=== PATIENT | male | born 1945 | race Caucasian/White ===

== ENCOUNTER → 2016-12-27 | Outpatient (CLI) | payer OTHER, MEDICARE ==
[~2016-12-27] MED LIST: ALLDSR/24 PO; ASCO500T16 PO; ASPEC81 PO; AVD5 PO; COEN1CAP PO; CYM60 PO; FLM4 PO; LANS30CA12 PO; LEVO88TA3 PO; LISI-725 PO; LOVA20TA4 PO; MBC75 PO; MELO7.5T5 PO; MODA1TAB PO; MULT-506 PO; OMEG10007 PO; QUIN1CAP5 PO; RXC5 PO; VGR50 PO; VITAMIN E PO
--- NOTE | 2016-12-28 09:51 | CODING QUERY NO DIAGNOSIS ---
TREATMENT RENDERED WITHOUT A DIAGNOSIS To promote full compliance with coding requirements relating to patient care, physician participation is requested in all cases of data warehouse developer uncertainty. Please assist us with providing a diagnosis/symptom for the test(s) below: A diagnosis/symptom was not documented on your Order. A valid diagnosis/symptom is required to bill all insurances. Please remember that we are unable to code a diagnosis of rule out, probable, possible, questionable, or suspected. Tests that require a diagnosis: * AERO/BERNARDA CULTURE & GRAM STAIN DIAGNOSIS: Provider Signature: Date: Thank you Melisa [facility] [employer] Once completed, please kindly fax back to [phone] For questions please call [phone]
== END | disposition home or self-care (01) ==
LOC: C.LABSPEC 17:07
PROVIDERS: ATTEND Orthopaedic Surgery
DX: M71.122 Other infective bursitis, left elbow (principal)

== ENCOUNTER 2017-03-05 08:45 | Inpatient (IN) | payer OTHER, MEDICARE ==
[2017-02-21 12:43] VITALS: BMI 28.0
--- NOTE | 2017-02-21 13:21 | PAT Medication Instructions ---
Service Date Feb 21, 2017. Current Home Medication List Ascorbic Acid (Ascorbic Acid), 500 MG PO QAM Aspirin Enteric Coated (Ecotrin Or Generic *), 81 MG PO QAM Duloxetine Hcl (Cymbalta *), 60 MG PO HS Dutasteride (Avodart *), 0.5 MG PO QAM Fexofenadine/Pseudoephedrine (Tati-D 24HR 180/240MG *), 1 TAB PO QAM Fish Oil ([place]-3), 1,200 MG PO QAM Lansoprazole (Prevacid), 30 MG PO QAM Levothyroxine Sodium (Levothyroxine Sodium), 1 TAB PO QAM Lisinopril (Zestril), 20 MG PO QAM Meloxicam (Mobic), 15 MG PO QAM Modafinil (Provigil), 200 MG PO DAILY Multivitamin (Multivitamin), 1 TAB PO QAM Quinine Sulfate (Quinine Sulfate), 324 MG PO DAILY PRN Tamsulosin Hcl (Flomax *), 0.4 MG PO HS Medication Instructions For Your Scheduled Surgery - Check with surgeon for instructions: Aspirin Enteric Coated (Ecotrin Or Generic *), 81 MG PO QAM Meloxicam (Mobic), 15 MG PO QAM - Hold the following medications 2 weeks prior to surgery: Fish Oil ([place]-3), 1,200 MG PO QAM - Hold the following medications the morning of surgery: Multivitamin (Multivitamin), 1 TAB PO QAM Lisinopril (Zestril), 20 MG PO QAM Fexofenadine/Pseudoephedrine (Tati-D 24HR 180/240MG *), 1 TAB PO QAM Dutasteride (Avodart *), 0.5 MG PO QAM Ascorbic Acid (Ascorbic Acid), 500 MG PO QAM Quinine Sulfate (Quinine Sulfate), 324 MG PO DAILY PRN leg cramps Modafinil (Provigil), 200 MG PO DAILY PRN - Take the following medications the morning of surgery with a sip of water: Levothyroxine Sodium (Levothyroxine Sodium), 1 TAB PO QAM Lansoprazole (Prevacid), 30 MG PO QAM - Take the following medications as scheduled the night before surgery: Tamsulosin Hcl (Flomax *), 0.4 MG PO HS Duloxetine Hcl (Cymbalta *), 60 MG PO HS Quinine Sulfate (Quinine Sulfate), 324 MG PO DAILY PRN leg cramps If you have any questions please call us at [phone] (Myra Funes PA-C) or [phone] or [phone]
--- NOTE | 2017-02-21 14:16 | DIAGNOSTIC IMAGING REPORT ---
CHEST PREADMISSION(PA/LAT) CLINICAL HISTORY: Preoperative chest COMPARISON STUDY: July 2011 FINDINGS: The cardiac and mediastinal contours are normal. There is no evidence of focal pulmonary consolidation. There is no evidence of failure. No pleural effusions are visualized.[ There is minimal linear atelectasis/scarring at the lung bases. IMPRESSION: No active disease in the chest. Electronically signed by: Kings Henderson M.D. 02/21/2017 2:14 PM Dictated Date/Time: 02/21/2017 2:13 PM
--- NOTE | 2017-02-21 14:21 | DIAGNOSTIC IMAGING REPORT ---
CERVICAL SPINE 2 OR 3 VIEWS CLINICAL HISTORY: PREOP, RHEUMATOID ARTHRITIS COMPARISON STUDY: None. FINDINGS: Lateral, flexion, extension views of the cervical spine. No fractures. Mild disc space narrowing at C4-C5 and C6-C7. Severe disc space narrowing at C5-C6. Large endplate osteophytes anteriorly from C4 through C6. Prevertebral soft tissues are intact. C1-C2 interval is maintained. There is 2 mm of anterolisthesis of C3 on C4 which remains unchanged through both flexion and extension. There is also 2 mm of retrolisthesis of C5 and C6 which is also not significant changed on flexion or extension. 2 mm of anterolisthesis of C7 on T1 remains unchanged throughout flexion and extension. Moderate facet degenerative changes within the cervical spine. IMPRESSION: Degenerative changes and multilevel spondylolisthesis as described above. However, the alignment remains intact throughout flexion and extension. Electronically signed by: Oscar Fall M.D. 02/21/2017 2:19 PM Dictated Date/Time: 02/21/2017 2:15 PM
[2017-02-21 14:37] LABS: BASO % 0.9 %; BASO ABS # 0.04 K/uL (0-0.2); COMPLETE YES; EOS % 6.1 %; HEMATOCRIT 43.6 % (42-52); IG% 0.4 %; LYMPH % 30.9 %; LYMPH ABS # 1.38 K/uL (1.2-3.4); MEAN CORPUSCULAR HEMOGLOBIN 30.9 pg (25-34); MEAN CORPUSCULAR HGB CONC 33.3 g/dl (32-36); MEAN PLATELET VOLUME 10.7 fL (7.4-10.4); MONO % 10.8 %; NEUT % 50.9 %; PLATELET COUNT 218 K/uL (130-400); RED BLOOD COUNT 4.69 M/uL (4.7-6.1); WHITE BLOOD COUNT 4.46 K/uL (4.8-10.8)
[2017-02-21 14:45] LABS: URINE APPEARANCE CLEAR (CLEAR); URINE BILIRUBIN NEG (NEG); URINE COLOR YELLOW; URINE NITRITE NEG (NEG); URINE SPECIFIC GRAVITY 1.012 (1.000-1.030); UROBILINOGEN NEG (NEG)
[2017-02-21 14:54] LABS: MANUAL MICROSCOPIC REQUIRED? NO; REVIEW REQ? NO
[2017-02-21 15:42] LABS: CALCIUM 8.7 mg/dl (8.5-10.1); POTASSIUM 4.7 mmol/L (3.5-5.1)
[2017-03-05] VITALS (8 sets, daily range): BP systolic 91–146; BP diastolic 41–93; PULSE 58–81; TEMP 36.3–36.5; O2SAT 95–99; Ht 185.4 cm; Wt 98.9 kg
[~2017-03-05] VITALS: Ht 185.4 cm; Wt 98.9 kg
[~2017-03-05 08:45] MED LIST changes: +CEFAZOLIN 2000 MG/60 ML D5W IV SCH; -COEN1CAP PO; +LACTATED RINGER'S 1000ML 1,000 ML IV SCH; -LOVA20TA4 PO; -MBC75 PO; -RXC5 PO; -VGR50 PO; -VITAMIN E PO
[2017-03-05] MEDS ORDERED: FENTANYL CITRATE INJ 50 MCG/1 ML 2 ML VIAL ONE ×5 (10:13→15:03)
[2017-03-05] MEDS ORDERED: MIDAZOLAM HCL 1 MG/ML 2ML VIAL ONE (10:13)
--- NOTE | 2017-03-05 10:39 | History & Physical Bridge Note ---
H&P Re-Evaluation Bridge Note: I have examined the patient, reviewed the History & Physical and in the interval since the performance of the History & Physical I have noted the following changes of clinical significance: No changes noted
--- NOTE | 2017-03-05 10:42 | History and Physical ---
History & Physical Date March 05, 2017. Chief Complaint back and leg pain History of Present Illness The patient is a 71 year old male with complaints of Past Medical/Surgical History Medical Problems: (1) Esophageal Reflux (2) Hypertension Nos (3) Lumbago Surgical Problems: (1) History of lumbar fusion (2) Knee Joint Replacement Status Additional History Hepatic Disease: No Endocrine Disorder: No Kidney Disease: No Hypertension: No Heart Disease: No Bleeding Tendencies: No Infectious Diseases: No Allergies Coded Allergies: Hydrocodone (Verified Allergy, Unknown, CHEST TIGHTNESS AND HEAVINESS, 03/05) Home Medications Scheduled Ascorbic Acid (Ascorbic Acid), 500 MG PO QAM Aspirin Enteric Coated (Ecotrin Or Generic *), 81 MG PO QAM Duloxetine Hcl (Cymbalta *), 60 MG PO HS Dutasteride (Avodart *), 0.5 MG PO QAM Fexofenadine/Pseudoephedrine (Tati-D 24HR 180/240MG *), 1 TAB PO QAM Fish Oil ([place]-3), 1,200 MG PO QAM Lansoprazole (Prevacid), 30 MG PO QAM Levothyroxine Sodium (Levothyroxine Sodium), 1 TAB PO QAM Lisinopril (Zestril), 20 MG PO QAM Meloxicam (Mobic), 15 MG PO QAM Modafinil (Provigil), 200 MG PO DAILY Multivitamin (Multivitamin), 1 TAB PO QAM Quinine Sulfate (Quinine Sulfate), 324 MG PO DAILY PRN Tamsulosin Hcl (Flomax *), 0.4 MG PO HS Physical Examination Skin: warm/dry, no rash Eyes: normal inspection, EOMI, sclerae normal ENT: normal ENT inspection, pharynx normal Head: normocephalic, atraumatic Neck: supple, no adenopathy, trachea midline Respiratory/Chest: lungs clear, normal breath sounds, no respiratory distress Cardiovascular: regular rate, rhythm, no edema, no murmur Abdomen / GI: normal bowel sounds, non tender Back: normal inspection Extremities: normal inspection, normal range of motion Neurologic/Psych: no motor/sensory deficits, alert, normal reflexes, oriented x 3 Diagnosis lumbar stenosis with sacralilitis Plan of Treatment decompression fusion T12-L3 removal inst L3 S1 with iliac bolts
[2017-03-05] MEDS ORDERED: BUPIVACAINE/EPINEPHRINE 0.5% MPF 1:200,000 30 ML VIAL ONE (10:50)
[2017-03-05] MEDS ORDERED: BACITRACIN 50000 UNIT VIAL ONE (10:50)
[2017-03-05] MEDS ORDERED: SODIUM CHLORIDE 0.9% PF 50 ML VIAL ONE (10:50)
[2017-03-05] MEDS ORDERED: ALBUMIN HUMAN 5% 12.5 GM/250 ML VIAL IV ONE ×2 (11:08→14:11)
[2017-03-05] MEDS ORDERED: THROMBIN FOR SOLN 20000 UNIT KIT ONE (11:20)
[2017-03-05] MEDS ORDERED: HYDROmorphone INJ 2 MG/ML SYR/VIAL ONE ×3 (11:36→15:06)
[2017-03-05] MEDS ORDERED: EpHEDrine SULFATE INJ 50 MG/ML AMP IV PRN (12:15)
[2017-03-05] MEDS ORDERED: FENTANYL CITRATE INJ 50 MCG/1 ML 2 ML VIAL IV PRN (12:15)
[2017-03-05] MEDS ORDERED: ATROPINE SULFATE 0.1 MG/ML 5ML SYR IV PRN (12:15)
[2017-03-05] MEDS ORDERED: ONDANSETRON INJ 2 MG/ML 2 ML VIAL IV PRN ×2 (12:15→15:00)
[2017-03-05] MEDS ORDERED: FLOSEAL HEMOSTATIC MATRIX 10ML TOP ONE ×5 (14:02→14:22)
[2017-03-05 14:10] LABS: HEMATOCRIT 34.5 % (42-52)
[2017-03-05] MEDS ORDERED: LIDOCAINE HCL 2% 2 ML VIAL (20MG/ML) ONE (14:10)
[2017-03-05] MEDS ORDERED: PROPOFOL IV EMULSION 10 MG/ML 20 ML VIAL IV ONE (14:10)
[2017-03-05] MEDS ORDERED: PHENYLEPHRINE 100MCG/ML 5ML SYR ONE (14:10)
[2017-03-05] MEDS ORDERED: EpHEDrine SULFATE 50MG/5ML SYR ONE (14:10)
[2017-03-05] MEDS ORDERED: ROCURONIUM BROMIDE 10 MG/ML 5 ML VIAL ONE (14:10)
[2017-03-05] MEDS ORDERED: DEXAMETHASONE SOD INJ 4 MG/ML VIAL ONE (14:10)
[2017-03-05] MEDS ORDERED: CEFAZOLIN SOD 1 GM VIAL ONE (14:36)
[2017-03-05] MEDS ORDERED: SODIUM CHLORIDE 0.9% 1000ML 1,000 ML IV SCH (14:56)
[2017-03-05] MEDS ORDERED: BISACODYL 10 MG SUPP PR PRN (15:00)
[2017-03-05] MEDS ORDERED: DO NOT ADMINISTER PNEUMOCOCCAL VACCINE PRN ×2 (15:00)
[2017-03-05] MEDS ORDERED: PROMETHAZINE HCL INJ 12.5 MG in SODIUM CHLORIDE 0.9% 50ML 50 ML IV PRN (15:00)
[2017-03-05] MEDS ORDERED: DO NOT ADMINISTER FLU VACCINE PRN ×3 (15:00)
[2017-03-05] MEDS ORDERED: ALUMINUM/MAGNESIUM SUSP 30 ML UDC PO PRN (15:00)
[2017-03-05] MEDS ORDERED: LORAZEPAM 0.5 MG TAB PO PRN (15:00)
[2017-03-05] MEDS ORDERED: SOD PHOSPHATE/SOD BIPHOSPHATE ENEMA 132 ML BTL PR PRN (15:00)
[2017-03-05] MEDS ORDERED: FAMOTIDINE 20 MG TAB PO PRN (15:00)
[2017-03-05] MEDS ORDERED: METOCLOPRAMIDE HCL INJ 5 MG/ML 2 ML VIAL IV PRN (15:00)
[2017-03-05] MEDS ORDERED: MAGNESIUM HYDROXIDE SUSP 30 ML UDC PO PRN (15:00)
[2017-03-05] MEDS ORDERED: hydrOXYzine HCL 25 MG TAB PO PRN (15:00)
[2017-03-05] MEDS ORDERED: NALOXONE HCL 0.4 MG/1 ML VIAL/CARP IV PRN ×2 (15:00)
[2017-03-05] MEDS ORDERED: ACETAMINOPHEN IV 100 ML IV PRN (15:00)
[2017-03-05] MEDS ORDERED: LORAZEPAM INJ 0.5 MG in SYRINGE 0.75 ML IV PRN (15:00)
[2017-03-05] MEDS ORDERED: ACETAMINOPHEN 500 MG TAB PO PRN (15:00)
[2017-03-05] MEDS ORDERED: ONDANSETRON INJ 2 MG/ML 2 ML VIAL ONE ×2 (15:08)
[2017-03-05] MEDS ORDERED: GLYCOPYRROLATE INJ 0.2 MG/ML VIAL ONE (15:08)
[2017-03-05] MEDS ORDERED: NEOSTIGMINE METHYLSULFATE 1 MG/ML 10ML VIAL ONE (15:08)
[2017-03-05 15:09] LABS: HEMATOCRIT 30.8 % (42-52)
--- NOTE | 2017-03-05 15:10 | DIAGNOSTIC IMAGING REPORT ---
Lumbar spine LUMBAR SPINE 2 OR 3 VIEW CLINICAL HISTORY: T12-S1 COMPRESSION/FUSION/INTERBODY/ILIAC BOLTS TECHNIQUE: Image intensifier COMPARISON STUDY: None FINDINGS: Image intensifier was utilized for an intraoperative thoracolumbar laminectomy and fusion IMPRESSION: Image intensifier used for lumbar laminectomy and fusion Electronically signed by: Jeffry Garcia M.D. 03/05/2017 3:09 PM Dictated Date/Time: 03/05/2017 3:06 PM
--- NOTE | 2017-03-05 15:27 | OPERATIVE REPORT ---
DATE OF OPERATION: 03/05/2017 PREOPERATIVE DIAGNOSES: Spinal stenosis, bilateral sacroiliitis. POSTOPERATIVE DIAGNOSIS: Same. PROCEDURE PERFORMED: 1. Removal of posterior segmental instrumentation, L3-S1. 2. Exploration of fusion L3-S1. 3. Lumbar decompression, medial facetectomies, foraminotomies L1-L2, L2-L3. 4. Posterior spinal fusion T11-S1. 5. Bilateral SI joint fusions. 6. Placement of posterior segmental instrumentation, T12-S1 with bilateral iliac bolts. 7. Placement of locally harvested morselized autograft posterior gutters. 8. Placement of Infuse collagen sponge combined with Mastergraft in the SI joints and posterolateral gutters T11-S1. SURGEON: Dr. Ross Tafoya. DIVISION ENGINEER: Due to the complex nature of the procedure, the entire surgery was performed with the dam tender assistant of Aaliyah Vu PA-C. The clinical services assistant, under direct supervision, was involved in the actual performance of all aspects of the surgical procedure including hemostasis, tissue retraction and incision, instrument management, patient positioning, and wound closure. ANESTHESIA: General. DISPOSITION: The patient awakened and taken to PACU in stable condition. HISTORY OF PATIENT'S PROBLEMS: This is a 71-year-old male who presents with above-mentioned diagnosis. After failing an extensive course of nonoperative care, elected to undergo the above-mentioned procedure. Risks, benefits, pros, cons, and alternatives were outlined in detail preoperatively. PROCEDURE: The patient was met with preoperatively, the case discussed and all questions were addressed. At that point the patient was taken back to operative suite and after undergoing successful general intubation via department anesthesia was placed in prone position on Wally table atop Oni frame. All bony prominences were well padded and the eyes were inspected to ensure there was no external pressure placed upon them. At this point the thoracolumbar spine was prepped and draped in normal sterile fashion. Sharp dissection with the assistance of Bovie cautery down to and exposing the lamina and transverse processes of T11, T12, L1, L2 and instrumentation at L3, L4, L5 and S1 levels bilaterally. I then proceeded to remove the hardware at L3-S1 bilaterally exploring the fusion mass noting it to be intact. We then performed a complete midline decompression, bilateral medial facetectomies, foraminotomies L2, L3 and 1, 2 to a caudal to cephalad fashion addressing severe lateral recess foraminal disease. After this was complete, pedicle screws were then placed in T12, L1, L2, L3, L4, L5, S1 as well as bilateral iliac bolts. Appropriate size rods were then cut, contoured and locked into position bilaterally in the transverse processes of T11, T12, L1, L2, L3, sacral ala and the bilateral SI joints were burred to subcortical bleeding bone. Infuse collagen sponge combined with Mastergraft and locally harvested morselized autograft was placed. A 7 flat SAIGE drain was inserted. Incision was closed with 1-0 Vicryl in the fascia, 2-0 Vicryl subcutaneously, 4-0 Monocryl for final skin closure. Steri-Strips and sterile dressing placed. The patient was awakened and taken to PACU in stable condition. I attest to the content of the Intraoperative Record and any orders documented therein. Any exceptio ns are noted below.
[2017-03-05] MEDS: HYDROmorphone HCL 0.5MG/ML 50 ML CASSETTE IV PRN ×3 (15:50→23:01)
--- NOTE | 2017-03-05 16:02 | Anesthesiology Progress Note ---
Anesthesia Post Op Note Date & Time March 05, 2017 at 16:02 Vital Signs Pain Intensity: 0 Vital Signs Past 12 Hours Date Time Temp Pulse Resp B/P Pulse Ox O2 Delivery O2 Flow Rate FiO2 03/05/17 15:45 126/61 03/05/17 15:44 76 15 100 03/05/17 15:44 76 15 03/05/17 15:40 120/56 03/05/17 15:39 72 13 03/05/17 15:39 72 13 100 03/05/17 15:35 116/46 03/05/17 15:34 75 12 99 03/05/17 15:34 75 12 03/05/17 15:30 102/48 03/05/17 15:29 74 13 100 03/05/17 15:29 36.2 75 16 115/48 99 Mask 10 03/05/17 15:29 75 13 03/05/17 09:09 36.4 58 18 146/93 97 Notes Mental Status: alert / awake / arousable, participated in evaluation Pt Amnestic to Procedure: Yes Nausea / Vomiting: adequately controlled Pain: adequately controlled Airway Patency, RR, SpO2: stable & adequate BP & HR: stable & adequate Hydration State: stable & adequate Anesthetic Complications: no major complications apparent Pt doing well.
[2017-03-05] MEDS: SODIUM CHLORIDE 0.9% 1000ML 1,000 ML IV SCH ×2 (18:05→21:31)
[2017-03-05] MEDS: CEFAZOLIN IV 2,000 MG in DEXTROSE 5% 50ML 50 ML IV SCH (20:13)
[2017-03-05] MEDS: DULOXETINE HCL 60 MG CAP PO SCH (20:34)
[2017-03-05] MEDS: DOCUSATE SODIUM/SENNA 50/8.6MG TAB PO SCH (20:35)
[2017-03-05] MEDS: TAMSULOSIN HCL 0.4 MG CAP PO SCH (20:35)
[2017-03-05] MEDS: DEXAMETHASONE INJ 6 MG in SYRINGE 0 ML IV SCH (21:33)
[2017-03-06] VITALS (7 sets, daily range): BP systolic 99–137; BP diastolic 47–70; PULSE 59–86; TEMP 36.4–37.4; O2SAT 93–100
[2017-03-06] MEDS: SODIUM CHLORIDE 0.9% 1000ML 1,000 ML IV SCH (03:36)
[2017-03-06] MEDS: CEFAZOLIN IV 2,000 MG in DEXTROSE 5% 50ML 50 ML IV SCH (03:36)
[2017-03-06] MEDS: DEXAMETHASONE INJ 6 MG in SYRINGE 0 ML IV SCH ×2 (05:54→13:44)
[2017-03-06] MEDS: LEVOTHYROXINE 88 MCG TAB PO SCH (05:54)
[2017-03-06] MEDS ORDERED: DC PCA ONE (06:00)
[2017-03-06] MEDS ORDERED: OXYCODONE HCL IR 5 MG TAB (IMMEDIATE RELEASE) PO PRN (06:00)
[2017-03-06] MEDS ORDERED: HYDROmorphone INJ 1 MG/ML SYR IV PRN (06:00)
[2017-03-06 06:15] LABS: COMPLETE YES; EOS % 0.1 %; IG% 0.2 %; LYMPH % 5.4 %; LYMPH ABS # 0.57 K/uL (1.2-3.4); MEAN CELL VOLUME 92.9 fL (80-100); MEAN CORPUSCULAR HEMOGLOBIN 32.1 pg (25-34); MEAN CORPUSCULAR HGB CONC 34.6 g/dl (32-36); MEAN PLATELET VOLUME 9.9 fL (7.4-10.4); MONO % 4.2 %; NEUT % 90.1 %; PLATELET COUNT 161 K/uL (130-400); WHITE BLOOD COUNT 10.62 K/uL (4.8-10.8)
[2017-03-06] MEDS ORDERED: NURSING VERBAL MED ORDER ONE (06:15)
[2017-03-06 06:53] LABS: BUN/CREATININE RATIO 16.2 (10-20); CALCIUM 7.6 mg/dl (8.5-10.1); CREATININE 1.1 mg/dl (0.60-1.40); POTASSIUM 4.6 mmol/L (3.5-5.1)
--- NOTE | 2017-03-06 07:19 | Clinical Documentation Query ---
JORDEN Skinner : CLINICAL DOCUMENTATION QUERY Patient is a 71 year old male who on 03/05 underwent removal of L3-S1 posterior instrumentation, decompression, and T11-S1 posterior spinal fusion. Preoperative hemoglobin and hematocrit were 14.5 g/dl and 43.6%. POD #1, repeat values were 9.0 g/dl and 26.0%. EBL for the procedure was 1,700 ml's with subsequently documented losses to date totaling an additional 580 ml's. Patient is being monitored with I/O including drain outputs and serial hematology. As appropriate, consider documentation as suggested below. In your clinical opinion is this patient being managed for: ( ) Acute blood loss anemia (this is NOT a complication of care) ( ) Other explanation of clinical findings (Please Explain) ( ) Unable to determine (Please Define) ( ) Need to Discuss ( ) Not Agree The medical record reflects the following clinical findings, treatment, and risk factors. Clinical Indicators: As above Treatment: Serial hematology, I/O including drain outputs Risk Factors: Acute perioperative blood losses. Please clarify and document your clinical opinion in the progress notes and discharge summary. Terms such as "probable", "suspected", "likely", "questionable", "possible", or "still to be ruled out" are acceptable. IF IN AGREEMENT, YOU MUST DOCUMENT ABOVE DIAGNOSTIC STATEMENT IN DAILY PROGRESS NOTES AND DISCHARGE SUMMARY. This document is not part of the patient's record. Thank You, Joshua Walker, SARAH BETH [phone]
--- NOTE | 2017-03-06 08:57 | PROGRESS NOTE ---
DATE: 03/06/2017 HISTORY OF PRESENT ILLNESS: Postop day 1. Back pain controlled. Leg pain improved. Vital signs stable. T-max 36.7. SAIGE drained 180 mL over the last shift. Hematocrit this a.m. is 26.0. PHYSICAL EXAMINATION: On exam, the patient is sitting at bedside. Has good strength to testing. ASSESSMENT: Status post thoracolumbar decompression and fusion. PLAN: At this time, we will continue to monitor his H\T\H, have a low threshold to transfuse, initiate physical therapy and bowel regimen today.
[2017-03-06] MEDS: MODAFINIL 100 MG TAB PO SCH (09:00)
[2017-03-06] MEDS: LISINOPRIL 20 MG TAB PO SCH (09:15)
[2017-03-06] MEDS: PANTOprazole SOD 40 MG TAB PO SCH (09:15)
[2017-03-06] MEDS: ASPIRIN 81 MG ECTAB PO SCH (09:15)
--- NOTE | 2017-03-06 10:47 | Anesthesiology Progress Note ---
Anesthesia Post Op Note Date & Time March 06, 2017 at 10:47 Vital Signs Pain Intensity: 0.0 Vital Signs Past 12 Hours Date Time Temp Pulse Resp B/P Pulse Ox O2 Delivery O2 Flow Rate FiO2 03/06/17 08:34 100 Nasal Cannula 2.0 03/06/17 08:27 36.7 86 14 122/57 100 Nasal Cannula 2.0 03/06/17 03:41 36.7 63 20 102/55 100 Nasal Cannula 4.0 03/06/17 00:14 Nasal Cannula 4.0 03/06/17 00:12 59 99/47 03/05/17 23:07 36.5 67 16 94/41 99 Nasal Cannula 4.0 91/42 Notes Mental Status: alert / awake / arousable, participated in evaluation Pt Amnestic to Procedure: Yes Nausea / Vomiting: adequately controlled Pain: adequately controlled Airway Patency, RR, SpO2: stable & adequate BP & HR: stable & adequate Hydration State: stable & adequate Anesthetic Complications: no major complications apparent
[2017-03-06] MEDS: DULOXETINE HCL 60 MG CAP PO SCH (21:17)
[2017-03-06] MEDS: TAMSULOSIN HCL 0.4 MG CAP PO SCH (21:17)
[2017-03-06] MEDS: DOCUSATE SODIUM/SENNA 50/8.6MG TAB PO SCH (21:18)
[2017-03-07] MEDS: POLYETHYLENE (MIRALAX) 17 GM PACK PO SCH ×4 (05:33→23:02)
[2017-03-07] MEDS: LEVOTHYROXINE 88 MCG TAB PO SCH (05:33)
[2017-03-07 06:32] VITALS: BP 131/60; PULSE 61; TEMP 36.6; O2SAT 97
[2017-03-07] MEDS: LISINOPRIL 20 MG TAB PO SCH (08:25)
[2017-03-07] MEDS: MODAFINIL 100 MG TAB PO SCH (08:25)
[2017-03-07] MEDS: ASPIRIN 81 MG ECTAB PO SCH (08:25)
[2017-03-07] MEDS ORDERED: RXC5 PO (08:33)
--- NOTE | 2017-03-07 08:33 | Discharge Instructions ---
Discharge Instructions Date of Service March 07, 2017. Admission Reason for Admission: Lumbar Stenosis W Neurogenic Claudication Discharge Discharge Diagnosis / Problem: stenosis Discharge Goals Goal(s): Improve function Activity Recommendations Activity Limitations: per Instructions/Follow-up section . Instructions / Follow-Up Instructions / Follow-Up ACTIVITY RECOMMENDATIONS: SELF CARE INSTRUCTIONS AFTER THORACIC/LUMBAR FUSIONS 1. You may walk to your tolerance. It is good exercise for your legs and back. Expect some back and intermittent leg aches and pains. 2. You may perform "counter-top" level activities (make a sandwich, raul with a project, etc.). 3. No bending or lifting of more than 10 pounds or back twisting of any nature (roll like a log when turning in bed). 4. You may ride in a car for 20-30 minutes at a time. No driving until after your first visit with your doctor. 5. Frequent changes of position and restricting sitting to 30 minutes at a time will help limit the amount of back spasms and stiffness you may experience. 6. You may discontinue the use of ambulatory aids (cane, crutches, etc.) once your strength and confidence allow. 7. You may porcelain mixer the shower and let water strike your incision when you arrive home at least once daily. Do not take a tub bath, sit in a hot tub or go into a swimming pool until after your first recheck in the office. SPECIAL CARE INSTRUCTIONS: VERY IMPORTANT TO READ AND REVIEW A. Your surgical incision has been closed with a cosmetic suture under the skin that will dissolve in about 6 weeks. In 14 days, you can use a pair of clean scissors and cut the suture that is left outside of the skin at the ends of your incision. 1. The small skin tapes can be removed 7 days after surgery if they have not fallen off by that point. 2. You may keep the wound open to air as much as possible to promote healing after post-op day number 5 unless told otherwise by your doctor. 3. If you think the wound looks like it is becoming infected (redness or worsening drainage) and/or you are experiencing fever, chill or worsening back pain and muscle spasms, contact the office so that we may evaluate you as soon as possible. B. Complications are uncommon, but please contact us if you have any signs or symptoms of: 1. wound infection (fever higher than 102.5 degrees F, redness, separation of wound, drainage, or increasing pain from the incision) 2. blood clots in legs (pain, swelling, redness and warmth in legs) 3. urinary tract infection (fever higher than 102.5 degrees F, burning upon urination or increased frequency of urination) 4. nerve problems (inability to walk on your toes or heels, numbness, loss of bowel or bladder control) 5. any other symptoms that concern you C. Please call the office at if you have any concerns or questions about your operation or recovery. D. No smoking! Smoking drastically decreases the chance of a solid fusion. E. Do not take any anti-inflammatory medications (Indocin, Advil, Motrin, Aspirin, Naprosyn, etc.) as these may inhibit the chance of a solid fusion. Tylenol is okay to take for pain. MANAGING PAIN AFTER SPINAL SURGERY 1. Narcotic medication is intended for short-term use and will be provided for surgical pain. Surgical pain usually lasts for a period of 4-6 weeks. Narcotic medication includes Percocet, Vicodin, Darvocet, Tylenol #3 or Lortab. 2. Longer-term pain is more appropriately treated with non-narcotic medication such as Tylenol ES. 3. Muscle spasm is not appropriately treated with narcotics. Muscle relaxers such as Soma, Flexeril or Skelaxin can be used along with Tylenol ES. 4. Remember that we all live with some "aches and pains". This is not unusual or uncommon after an injury or as we get older. a. Back pain is expected and may include muscle spasms for 4 to 6 weeks after surgery. The pain should gradually improve. If the pain worsens for no apparent reason, please contact the office. b. Intermittent leg pain may also be experienced and should not be concerned about unless it worsens for no apparent reason. If so, please contact the office. 5. We will provide appropriate medication within the normal guidelines of their prescribed use. We will also be very cautious and aware of potential abuse and extended duration of patients' medication needs. a. Pain medications are for your comfort and to assist with sleep and rest so that the tissue can heal. They are not provided in order to return to normal activity and should not be used through the day. To do so or worsening pain at night can result from ongoing tissue damage and development of tolerance to the prescribed medicine. 6. Please allow 2-3 days to process refills. Prescriptions will not be mailed but must be picked up at the office. FOLLOW UP VISIT: Keep your scheduled follow-up appointment. Any questions, please call the office at . Current Hospital Diet Patient's current hospital diet: Regular Diet Discharge Diet Recommended Diet: Regular Diet Procedures Procedures Performed: L1-L3 Lumbar Laminectomy, Decompression, T12-S1 Posterior Spinal Fusion, Bone Morphogenetic Protein, Iliac [place] Fixation, L3-S1 Hardware Removal Pending Studies Studies pending at discharge: no Medical Emergencies . Who to Call and When: Medical Emergencies: If at any time you feel your situation is an emergency, please call 911 immediately. . Non-Emergent Contact Non-Emergency issues call your: Primary Care Provider . "Provider Documentation" section prepared by Ross Tafoya. . VTE Core Measure Inpt VTE Proph given/why not?: Mauro Tsang, KIERAN's
[2017-03-07] MEDS: PANTOprazole SOD 40 MG TAB PO SCH (08:34)
[2017-03-07 08:43] LABS: HEMATOCRIT 28.2 % (42-52)
--- NOTE | 2017-03-07 08:53 | PROGRESS NOTE ---
DATE: 03/07/2017 DATE: 03/07/2017. SUBJECTIVE: Postop day #2. Back pain controlled. Leg pain improved. Vital signs stable. T-max 36.6. SAIGE drained 80 mL. Hematocrit 28.2. OBJECTIVE: On exam, the patient is in chair at bedside. Demonstrates good strength to testing and is comfortable. ASSESSMENT: Status post lumbar decompression and fusion. PLAN: At this time, will continue physical therapy and monitor his SAIGE output. We will consider discharge home this weekend with home health.
[2017-03-07 15:23] VITALS: BP 123/60; PULSE 62; TEMP 36.8; O2SAT 95
[2017-03-07] MEDS: TAMSULOSIN HCL 0.4 MG CAP PO SCH (20:40)
[2017-03-07] MEDS: DOCUSATE SODIUM/SENNA 50/8.6MG TAB PO SCH (20:41)
[2017-03-07] MEDS: DULOXETINE HCL 60 MG CAP PO SCH (20:41)
[2017-03-07 22:43] VITALS: BP 112/64; PULSE 69; TEMP 36.4; O2SAT 97
[2017-03-08] MEDS: POLYETHYLENE (MIRALAX) 17 GM PACK PO SCH ×2 (05:16→12:34)
[2017-03-08] MEDS: LEVOTHYROXINE 88 MCG TAB PO SCH (05:19)
[2017-03-08] MEDS: MODAFINIL 100 MG TAB PO SCH (07:11)
[2017-03-08 07:14] VITALS: BP 132/72; PULSE 79; TEMP 36.8; O2SAT 93
[2017-03-08] MEDS: LISINOPRIL 20 MG TAB PO SCH (08:31)
[2017-03-08] MEDS: ASPIRIN 81 MG ECTAB PO SCH (08:31)
[2017-03-08] MEDS: PANTOprazole SOD 40 MG TAB PO SCH (08:31)
[2017-03-08 11:41] VITALS: BP 132/72; PULSE 79; TEMP 36.8; O2SAT 93
--- NOTE | 2017-03-08 12:04 | DISCHARGE SUMMARY ---
DATE OF DISCHARGE: 03/08/2017. PRINCIPAL DIAGNOSIS: Spinal stenosis. HOSPITAL COURSE FOLLOWS: On 03/05/2017 the patient underwent multilevel lumbar decompression and fusion, tolerated this well and taken to the orthopedic floor postoperatively. Postop day #1, he was up and ambulatory, progressed to postop day #2. Postop day #3, pain was well controlled. We had arranged home health. We will allow him to discharge home today with home health. They will maintain his drain.
== END 2017-03-08 14:05 | disposition home health service (06) | DRG 460 ==
LOC: ENRESERVTM → ENRESERVDT → C.ACU 08:45 → C.3E 11:00
PROVIDERS: ADMIT Orthopaedic Surgery Orthopaedic Surgery of the Spine; ATTEND Orthopaedic Surgery Orthopaedic Surgery of the Spine
PROC: 0SG30A1 (ICD-10-PCS; principal; 2017-03-05 11:15)
PROC: 0RGA0A1 (ICD-10-PCS; principal; 2017-03-05 11:15)
PROC: 0SP30AZ Removal of Interbody Fusion Device from Lumbosacral Joint, Open Approach (ICD-10-PCS; principal; 2017-03-05 11:15)
PROC: 0SG00A1 (ICD-10-PCS; principal; 2017-03-05 11:15)
PROC: 0RG60A1 (ICD-10-PCS; principal; 2017-03-05 11:15)
DX: M48.06 Spinal stenosis, lumbar region (principal); M46.1 Sacroiliitis, not elsewhere classified; K21.9 Gastro-esophageal reflux disease without esophagitis; I10 Essential (primary) hypertension; Z79.82 Long term (current) use of aspirin; Z79.899 Other long term (current) drug therapy

== ENCOUNTER 2019-12-02 12:35 | Inpatient (IN) ==
--- NOTE | 2019-12-02 14:34 | History and Physical Report ---
DATE OF ADMISSION: 12/03/2019 CHIEF COMPLAINT: Bilateral knee pain. HISTORY OF PRESENT ILLNESS: Mr. Walker is a pleasant male, known patient to Dr. Beasley who presented to the office today with bilateral knee pain and swelling for 3 days. By history, he had a bilateral knee replacements in 2005 and has been doing pretty well since then. On Friday, he was noted to have fever, chills and nausea with some mild knee pain at that point. He called the office this morning with an increase in bilateral knee pain to the point that he is unable to bear much weight on either knee. He denies any known injuries or trauma to either knee. He complains of pain, swelling, redness and warmth to bilateral knees. PAST MEDICAL HISTORY: 1. Hypertension. 2. High cholesterol. 3. Peptic ulcer disease. 4. BPH. 5. GERD. PAST SURGICAL HISTORY: 1. Bilateral knee replacements in 2005. 2. Cholecystectomy. 3. Appendectomy. 4. Right orbit surgery on his right orbit after it was fractured. 5. Hemorrhoidectomy. FAMILY HISTORY: Mother, history of diabetes. SOCIAL HISTORY: The patient is nonsmoker. He is and drinks alcohol on occasion. REVIEW OF SYSTEMS: Otherwise negative. Please see HPI for pertinent positives. ALLERGIES: HYDROCODONE. MEDICATIONS: Most recent medication list 1. Aspirin 81 mg daily. 2. Duloxetine 60 mg daily. 3. Tati-D. 4. Fish oil. 5. Prevacid 30 mg daily. 6. Lovastatin 20 mg daily. 7. Multivitamin. 8. Viagra p.r.n. 9. Flomax 0.4 mg daily. 10. Vitamin E. PHYSICAL EXAMINATION: GENERAL: Pleasant male in no acute distress, alert and oriented x3. HEENT: Normocephalic, atraumatic. CARDIAC: Regular rate and rhythm. No murmurs or gallops appreciated. Resting pulse 80 beats per minute. LUNGS: Clear to auscultation without rales or wheeze bilaterally. ABDOMEN: Soft, nontender. Bowel sounds present. EXTREMITIES: Bilateral lower extremities neurovascularly intact. Calves were soft and nontender. DP pulse, palpable bilateral legs. He does have moderate effusion to both knees and are warm to touch. Range of motion of his right knee is 0/3/90 and his left knee is 0/5/90. He has diffuse tenderness to palpation to both knees. Both knees are ligamentously stable with valgus varus stress. He has well-healed surgical incisions noted. IMAGING: Reviewed bilateral knees show the patient is status post bilateral total knee replacements with excellent position of the femoral and tibial components. There appears been no fractures or dislocations noted. No signs of hardware complications. IMPRESSION: Bilateral knee pain and swelling status post bilateral total knee replacements in 2005. PLAN: Further care discussed with Anthony and was also reviewed with Dr. Beasley who was present during examination. At this point in time, we will aspirate both of his knees and for cell count, Gram stain, culture and sensitivity. We will do a direct admission to [facility] today and will keep n.p.o. after midnight tonight for bilateral knee I and D with poly exchange tomorrow at [facility]. Will consult infectious disease. Ice, elevate knees for swelling. Will start on vancomycin pending culture results and perioperative findings.
[2019-12-02] MEDS ORDERED: ONDANSETRON INJ 2 MG/ML 2 ML VIAL IV PRN (15:20)
[2019-12-02] MEDS ORDERED: ACETAMINOPHEN 325 MG TAB PO PRN (15:20)
[2019-12-02] MEDS ORDERED: VANCOMYCIN CONSULT ACTIVE PRN (15:27)
[2019-12-02] MEDS ORDERED: VANCOMYCIN HCL 1,000 MG in SODIUM CHLORIDE 0.9% 250 ML IV SCH (15:30)
[2019-12-02] MEDS ORDERED: PATIENT'S HEIGHT AND/OR WEIGHT NEEDED SCH (15:45)
[2019-12-02 16:04] LABS: Basophils # (auto) 0.01 K/uL (0-0.2); Basophils % (auto) 0.1 %; Eosinophils # (auto) 0.06 K/uL (0-0.5); Eosinophils % (auto) 0.6 %; Hematocrit (blood only) 41.4 % (42-52); Hemoglobin 14.2 g/dL (14.0-18.0); Immature Granulocytes # (auto) 0.02 K/uL (0.00-0.02); Immature Granulocytes % (auto) 0.2 %; Lymphocytes # (auto) 1.12 K/uL (1.2-3.4); Mean Corpuscular Hemoglobin 32.3 pg (25-34); Mean Corpuscular Volume 94.1 fL (80-100); Mean Platelet Volume 10.6 fL (7.4-10.4); Monocytes % (auto) 9.9 %; Neutrophils # (auto) 7.93 K/uL (1.4-6.5); Neutrophils % (auto) 78.2 %; Platelet Count 159 K/uL (130-400); RDW Coefficient of Variation 14.5 % (11.5-14.5); White Blood Count 10.14 K/uL (4.8-10.8)
[2019-12-02 16:26] LABS: BUN Creatinine Ratio 23.1 (10-20); Blood Urea Nitrogen 32 mg/dl (7-18); Calcium 8.4 mg/dl (8.5-10.1); Carbon Dioxide 32 mmol/L (21-32); Chloride 100 mmol/L (98-107); Est GFR (African American) 55.4; Est GFR (African American) 58.3; Est GFR (Non-African American) 47.8; Est GFR (Non-African American) 50.3; Glucose 103 mg/dl (70-99); Potassium 3.8 mmol/L (3.5-5.1); Sodium 133 mmol/L (136-145)
[2019-12-02 16:27] LABS: Mean Corpuscular Hgb Conc 34.3 g/dL (32-36)
--- NOTE | 2019-12-02 17:16 | XRay Report ---
TWO VIEW CHEST CLINICAL HISTORY: Preoperative examination. FINDINGS: PA and lateral chest radiographs are compared to study dated 02/21/2017. The heart is mildly enlarged noting atherosclerotic calcification of the thoracic aorta. The pulmonary vasculature is no ncongested. Chronic interstitial thickening is similar to previous. There is bibasilar scarring/atele ctasis. No airspace consolidation or pleural effusion is identified. There is no pneumothorax. The sk eletal structures are osteopenic. The bony thorax appears intact. Degenerative changes noted in the s houlders and thoracic spine. Fusion hardware is partially imaged in the upper lumbar spine. Cholecyst ectomy clips are noted. IMPRESSION: No active disease in the chest. ACT 112: Negative or not required by law. Electronically signed by: Max Miles M.D. 12/02/2019 5:14 PM
[2019-12-02] MEDS ORDERED: VANCOMYCIN HCL 2,000 MG in SODIUM CHLORIDE 0.9% 500 ML IV STA (17:40)
--- NOTE | 2019-12-02 17:50 | Electrocardiogram Report ---
Test Reason : Blood Pressure : / mmHG Vent. Rate : 068 BPM Atrial Rate : 068 BPM P-R Int : 174 ms QRS Dur : 104 ms QT Int : 396 ms P-R-T Axes : 035 -52 000 degrees QTc Int : 421 ms Normal sinus rhythm Left anterior fascicular block Minimal voltage criteria for LVH, may be normal variant ( R in aVL ) Nonspecific T wave abnormality Abnormal ECG When compared with ECG of 21-FEB-2017 13:30, Left anterior fascicular block is now Present Nonspecific T wave abnormality has replaced inverted T waves in Inferior leads Confirmed by Robert Phillips ([id number]) on 12/02/2019 5:49:35 PM Referred By: Simone Beasley Confirmed By:Frankie Phillips
--- NOTE | 2019-12-02 18:10 | Pharmacy Report ---
Pharmacy Abx Dose Short Note - Date of Service December 02, 2019 - Assessment & Plan A/P Pt is being started on vancomycin for bone and joint infxn. From my review of his chart he does not have a h/o MRSA. He had b/l knee replacements in 2005, on Friday he p/w fever, chills. He is unable to bear weight on either knee. PMHx consistent with HTN, HLD, PUD, BPH. Patient meets criteria for vancomycin AUC dosing nomogram Vanco loading dose 2000mg IV x1 then AUC/DARWIN nomogram AUC/DARWIN is the preferred PK/PD target for vancomycin Target AUC/DARWIN = 400-600 AUC guided dosing is effective and associated with decreased risk of nephroto xicity Trough levels poorly correlate with AUC/DARWIN and trough monitoring has been associated with increased risk of nephrotoxicity * Nonetheless we will order a trough to ensure he is achieving therapeutic levels, see MAR for further details. Pharmacy will continue to follow and will adjust dose/frequency as necessary. Thank you.
[2019-12-02] MEDS: SODIUM CHLORIDE 0.9% 1000ML 1,000 ML IV SCH (19:44)
[2019-12-02] MEDS: DOCUSATE SODIUM 100 MG CAP PO SCH (20:24)
[2019-12-03] MEDS: VANCOMYCIN HCL 1,500 MG in SODIUM CHLORIDE 0.9% 500 ML IV SCH ×2 (05:21→19:23)
[2019-12-03] MEDS ORDERED: CEFAZOLIN 2000MG 2,000 MG/15 ML SYR IV SCH (06:00)
[2019-12-03 06:11] LABS: Creatinine Clr Calc Pharmacy 72.1 ml/min; Est GFR (African American) 76.5
[2019-12-03] MEDS ORDERED: LIDOCAINE HCL 2% 2 ML VIAL/AMP(20MG/ML) INFIL ONE (08:17)
[2019-12-03] MEDS ORDERED: PROPOFOL IV EMULSION 10 MG/ML 20 ML VIAL IV ONE (08:17)
[2019-12-03] MEDS ORDERED: fentaNYL citrate 100 MCG/2 ML VIAL ONE ×2 (08:17→11:03)
[2019-12-03] MEDS ORDERED: MIDAZOLAM HCL 1 MG/ML 2ML VIAL ONE (08:17)
[2019-12-03] MEDS ORDERED: ONDANSETRON INJ 2 MG/ML 2 ML VIAL ONE (08:17)
--- NOTE | 2019-12-03 08:32 | Anesthesiology Consultation ---
Date of Service December 03, 2019 Assessment & Plan Chart Review Chart Review: Acceptable Risk for Surgery Consults Requested none ASA ASA3 Proposed Anesthesia Anesthesia Type: General Risk / Benefits Reviewed With: PT / POA / Parent / Guardian, Accepts Plan and Informed Consent Obtained History Surgery Operation Date: 12/03/19 09:10 Proposed Procedures p Bilateral Knee Incision and Drainage with Poly Exchange - Simone Beasley, Height/Weight Height: 6 ft Weight: 95.4 kg Allergies Allergy/AdvReac Type Severity Reaction Status Date / Time hydrocodone Allergy Unknown CHEST Verified 03/05/17 09:26 TIGHTNESS AND HEAVINESS Medications Home Medications Medication Instructions Recorded Confirmed Last Taken Aspirin Enteric Coated (Ecotrin Or 81 mg PO QAM #0 07/04/11 12/02/19 11/29/19 Generic *) Duloxetine Hcl (Cymbalta *) 60 mg PO HS #0 07/04/11 12/02/19 11/29/19 Dutasteride (Avodart *) 0.5 mg PO QAM #0 07/04/11 12/02/19 11/29/19 Fish Oil (Cameron-3) 1,200 mg PO QAM #0 07/04/11 12/02/19 11/29/19 Multivitamin 1 tab PO QAM #0 07/04/11 12/02/19 11/29/19 Tamsulosin Hcl (Flomax *) 0.4 mg PO HS #0 07/04/11 12/02/19 11/29/19 Fexofenadine/Pseudoephedrine 1 tab PO QAM #0 07/11/11 12/02/19 11/29/19 (Tati-D 24HR 180/240MG *) Quinine Sulfate 324 mg PO DAILY PRN #0 07/11/11 12/02/19 Unknown ASCORBIC ACID 500 mg PO QAM #0 tab 04/05/15 12/02/19 11/29/19 Lansoprazole (Prevacid) 30 mg PO QAM #0 cap 04/05/15 12/02/19 11/29/19 Modafinil (Provigil) 200 mg PO DAILY #0 tab 04/05/15 12/02/19 Unknown LEVOTHYROXINE SODIUM 1 tab PO QAM 90 Days #90 tab 02/21/17 12/02/19 11/29/19 Lisinopril (Zestril) 20 mg PO QAM #0 tab 02/21/17 12/02/19 11/29/19 Oxycodone HCl 5 - 10 mg PO Q4H PRN 30 Days #90 03/07/17 12/02/19 Unknown tab Active Medications Generic Name Dose Route Start Last Admin Trade Name Freq PRN Reason Stop Dose Admin Docusate Sodium 100 mg 12/02/19 21:00 12/02/19 20:24 Colace PO 01/01/20 20:59 100 mg BID J CARLOS Administration Sodium Chloride 1,000 mls @ 15 mls/hr 12/02/19 16:00 12/02/19 22:36 Nss 1000ml IV 01/01/20 15:59 15 mls/hr .Q24H J CARLOS Infusion KVO Vancomycin HCl 1,500 mg/ 530 mls @ 200 mls/hr 12/03/19 06:00 12/03/19 08:00 Sodium Chloride IV 01/14/20 05:59 Infused Q12H J CARLOS Infusion NPO Date Last Intake of Fluids: 12/02/19 Time Last Intake of Fluids: 23:59 Date Last Intake of Solids: 12/02/19 Time Last Intake of Solids: 20:00 Past Medical History Medical History (Updated 12/03/19 @ 09:06 by Kosta Godoy DO) Cellulitis of right knee (Acute) HTN (hypertension) Hypothyroid Lumbar stenosis with neurogenic claudication Exercise / Class Metabolic Activity II 4-5 Yardwork/Stairs/Walk up hill Past Surgical History Surgical History (Updated 12/03/19 @ 08:30 by Kosta Godoy DO) History of lumbar fusion (Resolved) Status post bilateral knee replacements (Acute) Past Anesthesia History No Hx of Anesthesia Complications and No Family Hx of Anesthesia Complications History of PONV No Hx of PONV and No Hx of Motion Sickness Social History Smoking Status: Never smoker Do You Dip or Chew Tobacco: No Hx Alcohol Use: Yes Alcohol type: beer alcohol intake frequency: holidays/special occasions only Hx Substance Use: No Physical Exam Vital Signs Last Vital Signs Temp 97.5 F L 12/03/19 08:53 Pulse 64 12/03/19 08:53 Resp 20 12/03/19 08:53 BP 127/73 12/03/19 08:53 Pulse Ox 97 12/03/19 08:53 ENMT Mouth: no dentition abnormality Thyromental Distance: > or= 3.5 Finger Breadths Mallampati Class: II Neck normal visual inspection Respiratory normal respiratory effort Auscultation: lungs clear to auscultation bilaterally Cardiovascular Rate/Rhythm: regular rate and regular rhythm Testing Laboratory Results 12/02/19 15:49 12/03/19 05:21 12/02/19 Na 133 K 3.8 Cr 1.11 glucose 103 Electrocardiogram Date: 12/02/19 Normal sinus rhythm, rate 68 bpm Left anterior fascicular block Minimal voltage criteria for LVH, may be normal variant ( R in aVL ) Nonspecific T wave abnormality Abnormal ECG When compared with ECG of 21-FEB-2017 13:30, Left anterior fascicular block is now Present Nonspecific T wave abnormality has replaced inverted T waves in Inferior leads Confirmed by Robert Phillips ([id number]) on 12/02/2019 5:49:35 PM Chest X-Ray Date: 12/02/19 Findings: + NAD
[2019-12-03] MEDS ORDERED: ATROPINE SULFATE 0.1 MG/ML 10ML SYR IV PRN (09:09)
[2019-12-03] MEDS ORDERED: ePHEDrine sulfate 50 MG/ML AMP IV PRN (09:09)
[2019-12-03] MEDS ORDERED: fentaNYL citrate 100 MCG/2 ML VIAL IV PRN (09:09)
[2019-12-03] MEDS ORDERED: ONDANSETRON INJ 2 MG/ML 2 ML VIAL IV PRN (09:09)
[2019-12-03] MEDS ORDERED: BACITRACIN INJ 50,000 UNIT VIAL ONE (09:11)
--- NOTE | 2019-12-03 09:17 | History & Physical Bridge Note ---
Date of Service December 03, 2019 History & Physical Bridge Note I have examined the patient, reviewed the History & Physical and in the interval since the performance of the History & Physical I have noted the following changes of clinical significance: no changes noted
[2019-12-03] MEDS ORDERED: VANCOMYCIN HCL 1000MG/20ML VIAL ONE (09:20)
--- NOTE | 2019-12-03 12:02 | Operative Report ---
Post Operative Report Pre & Post Diagnosis Operation Date: 12/03/19 09:10 Pre-Op Diagnosis: Bilateral Total Knee Arthroplasty Infection Post-Op Diagnosis: Bilateral Total Knee Arthroplasty Infection I identified the patient and participated in the time-out.: Yes Procedure Operation Date: 12/03/19 09:10 Actual Procedures p Bilateral Total Knee: Incision and Drainage and Debridement with Poly Exchanges(Bilateral) right knee I&D poly-change with synovectomy to a size 9 x 6 poly-triathlon left knee I&D poly-change with synovectomy with a change to a 9 x 6 poly-triathlon- Simone Beasley DO Surgeon Simone Beasley DO Property Appraiser Pancho PRITCHETT Estimated Blood Loss 10 Findings Consistent with Post-Op Diagnosis Patient presents with acute onset pain bilateral knees is 14 years out from bilateral total knee arthroplasties been completely on symptomatic until Friday felt sick Friday began having some night sweats fever chills Friday began with knee pain that was unable to ambulate aspiration yesterday late afternoon revealed dez purulence 40 cc from aspirated from both knees sed rate was 29 C- reactive protein 26 patient had a warm hot knees bilaterally of acute onset 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 patient presents for bilateral I&D poly-change white cell count fluid was 75,000 for each specimen right knee and left knee Specimens Synovium cultures fluid right knee synovium culture fluid left knee Drains Medium bore Hemovac both knees Complications none Disposition Accompanied Patient To Recovery: No Disposition: Recovery Room Indications Patient presents the above bilateral knee acute swelling with fever chills fluid consistent with dez pus 40 cc each knee as well as elevated sed rate C- reactive protein and 75,000 white cells per count presents for a bilateral poly- change washout Description of Procedure After proper prepping draping the left lower extremity incision was made over the region of the extensor mechanism dissection carried down to the region of the extensor mechanism medial parapatellar incision made dez purulent fluid was aspirated and was irrigated from the knee joint a synovectomy both medial lateral anterior compartments was performed the versa jet was also used to further clean all the synovium the poly-had been already removed the cultures were taken prior to the irrigation subsequently the culture fluid was sent for culture as well as Gram stain the synovectomy having been completed the #9 trial gave excellent stability in both full flexion extension mid flexion the wound having been thoroughly irrigated with 9 L of sterile saline solution with bacitracin the poly-was replaced the wound was then irrigated with Betadine left in place for 3 minutes wound was once again irrigated with another liter of sterile saline solution with bacitracin the medial parapatellar incision was closed over medium bore Hemovac with #1 Vicryl subcu was closed with 2-0 Vicryl skin was closed skin clips sterile compressive dressing was placed patient subsequently had right knee prepped and draped after prepping and draping in a separate set up for the right knee and anterior skin incision was made dissection was carried down to the medial parapatellar incision was made a complete total synovectomy performed after obtaining cultures for Gram stain and fluid synovial culture dez purulence was noted be present synovectomy performed the poly-been removed a versa jet was used to clean irrigate the synovium the wound was irrigated with 9 L of bacitracin sterile saline solution the poly-was replaced and there were 9 x 6 excellent stability in all ranges of motion including flexion extension mid flexion subsequently the base of the wound was irrigated with Betadine for 3 minutes the wound was once again irrigated with sterile saline solution subcentimeter proptosis closed over medium bore Hemovac #1 Vicryl subcu was closed 2-0 Vicryl skin was closed skin clips sterile compressive dressing was placed patient was socially taken recovery in stable condition please note Pancho PRITCHETT was necessary prepping draping traction wound closure of deep fascia subcu and skin was necessary for the case I attest to the content of the Intraoperative Record and any orders documented therein. Any exceptions are noted below.
--- NOTE | 2019-12-03 13:07 | Anesthesiology Progress Note ---
Date of Service December 03, 2019 Anesthesia Post Procedure Vital Signs Vital Signs: Temp Pulse Pulse Resp BP Pulse Ox 12/03/19 13:00 77 15 145/82 H 97 12/03/19 12:50 74 16 129/71 99 12/03/19 12:40 77 16 128/65 96 12/03/19 12:34 98.4 F 80 16 105/61 96 12/03/19 08:53 97.5 F L 64 20 127/73 97 12/03/19 06:54 98.1 F 69 19 126/70 95 12/02/19 22:57 97.9 F 65 18 130/74 96 12/02/19 15:14 97.7 F 70 16 124/67 96 Transfer of Care Handoff Completed per policy Notes Mental Status: alert / awake / arousable and participated in evaluation Patient Amnestic to Procedure: Yes Nausea / Vomiting: adequately controlled Pain: adequately controlled Airway Patency, RR, SpO2: stable & adequate BP & HR: stable & adequate Hydration State: stable & adequate Anesthetic Complications: no major complications apparent and Pt Satisfied with anesthetic care
--- NOTE | 2019-12-03 13:30 | XRay Report ---
XR knee RT 1 or 2V routine CLINICAL HISTORY: Surgical Post Op COMPARISON: None. DISCUSSION: There are postsurgical changes of a total right knee arthroplasty and patellar resurfacin g. Overlying skin [place] and surgical drains are evident. The femoral tibial components appear well seated. There is gas in the soft tissues consistent with recent surgery. IMPRESSION: Postsurgical changes of a total right knee arthroplasty. ACT 112: Negative or not required by law. Electronically signed by: Kings Henderson M.D. 12/03/2019 1:29 PM
--- NOTE | 2019-12-03 13:32 | XRay Report ---
LEFT KNEE 2 VIEWS History: Left total knee arthroplasty. Degenerative arthritis. Postop. FINDINGS: The patient is status post a left total knee arthroplasty. The hardware is intact. No fract ure or dislocation. Skin [place] and surgical drains are in place. IMPRESSION: Left total knee arthroplasty. No evidence for hardware complication. ACT 112: Negative or not required by law. Electronically signed by: Oscar Fall M.D. 12/03/2019 1:31 PM
[2019-12-03] MEDS ORDERED: NALOXONE HCL 0.4 MG/1 ML VIAL/CARP IV PRN (13:40)
[2019-12-03] MEDS ORDERED: MAGNESIUM HYDROXIDE SUSP 30 ML UDC PO PRN (13:40)
[2019-12-03] MEDS ORDERED: QUININE SULFATE 324 MG PO SCH (13:40)
[2019-12-03] MEDS ORDERED: bisacodyL 10 MG SUPP PR PRN (13:40)
[2019-12-03] MEDS: DOCUSATE SODIUM 100 MG CAP PO SCH ×3 (13:47→21:22)
[2019-12-03] MEDS: PANTOprazole 40 MG TAB PO SCH (13:48)
--- NOTE | 2019-12-03 13:49 | Infectious Disease Consult ---
Date of Consultation December 03, 2019 Assessment & Plan (1) Effusion of right knee joint: continue abx, follow cultures. awiat OR findings. History of Present Illness Attending Physician: Simone Beasley DO pt admitted due to b/l knee pain, started suddenly denies any tratuma. no f/c at home, states knees replaced in 2003, did well postop. afebrile since admission, went to OR earlier today for b/l poly exchange, tolerated well. no pain, on vanco pending cultures, tolerating well. esr 20, wbc 10 crp 21. 12/02 aspiration [id number] wbc, 12/02 right and left knee cultures pending. OR findings pending. feeling well. states he had dental cleaning and cavities filled 2-3 weeks ago but no other procedures. no cp, sob, cough, no abd pain, no n/v/d. Allergies Allergy/AdvReac Type Severity Reaction Status Date / Time hydrocodone Allergy Unknown CHEST Verified 03/05/17 09:26 TIGHTNESS AND HEAVINESS Home Medications Home Medications Medication Instructions Recorded Confirmed Type Aspirin Enteric Coated (Ecotrin Or 81 mg PO QAM #0 07/04/11 12/02/19 History Generic *) Duloxetine Hcl (Cymbalta *) 60 mg PO HS #0 07/04/11 12/02/19 History Dutasteride (Avodart *) 0.5 mg PO QAM #0 07/04/11 12/02/19 History Fish Oil (Perkins-3) 1,200 mg PO QAM #0 07/04/11 12/02/19 History Multivitamin 1 tab PO QAM #0 07/04/11 12/02/19 History Tamsulosin Hcl (Flomax *) 0.4 mg PO HS #0 07/04/11 12/02/19 History Fexofenadine/Pseudoephedrine 1 tab PO QAM #0 07/11/11 12/02/19 History (Tati-D 24HR 180/240MG *) Quinine Sulfate 324 mg PO DAILY PRN #0 07/11/11 12/02/19 History ASCORBIC ACID 500 mg PO QAM #0 tab 04/05/15 12/02/19 History Lansoprazole (Prevacid) 30 mg PO QAM #0 cap 04/05/15 12/02/19 History Modafinil (Provigil) 200 mg PO DAILY #0 tab 04/05/15 12/02/19 History LEVOTHYROXINE SODIUM 1 tab PO QAM 90 Days #90 tab 02/21/17 12/02/19 History Lisinopril (Zestril) 20 mg PO QAM #0 tab 02/21/17 12/02/19 History Oxycodone HCl 5 - 10 mg PO Q4H PRN 30 Days #90 03/07/17 12/02/19 Rx tab Patient History Medical History Cellulitis of right knee (Acute) HTN (hypertension) Hypothyroid Lumbar stenosis with neurogenic claudication Surgical History History of lumbar fusion (Resolved) Status post bilateral knee replacements (Acute) Social History Preferred Language: Somali Winder Fixer Required: No Beliefs That Will Affect Care: None Current Living Situation: Spouse Feels Safe at Home: Yes Smoking Status: Never smoker Hx Alcohol Use: Yes Alcohol type: beer Hx Substance Use: No Review of Systems Review of Systems: All systems reviewed & are unremarkable except as noted in HPI & below Physical Exam Constitutional: WD/WN, vitals as above Eyes: PERRL, conjunctivae normal, anicteric sclerae ENMT: external ear and nose normal, oropharynx normal Neck: normal visual inspection Respiratory: normal respiratory effort, lungs clear to auscultation Cardiovascular: RRR, no murmur, no edema Gastrointestinal (Abdomen): normal bowel sounds, soft, nontender, no hepatosplenomegaly Musculoskeletal: no cyanosis or clubbing, extremities motor strength 5/5 Skin: no rashes, warm and dry b/l knee dressing intact, drains in place. Psychiatric: A+Ox3, euthymic affect Results & Data Vital Signs (Past 12 Hours) Vital Signs Temp Pulse Pulse Resp BP Pulse Ox 12/03/19 13:35 36.3 C L 74 16 137/73 94 12/03/19 13:20 73 21 138/79 96 12/03/19 13:10 36.2 C L 75 21 143/79 H 97 12/03/19 13:00 77 15 145/82 H 97 12/03/19 12:50 74 16 129/71 99 12/03/19 12:40 77 16 128/65 96 12/03/19 12:34 36.9 C 80 16 105/61 96 12/03/19 08:53 36.4 C L 64 20 127/73 97 12/03/19 06:54 36.7 C 69 19 126/70 95 PG Care Time/CCT Total # of Minutes Spent Total Time Spent with Patient: Total time spent is greater than 50% in coordination of care (as documented) at patient's floor/unit and/or counseling patient: Coding Level of Care Code 17026 Inpt Consult Level 4 Diagnoses Effusion of right knee joint M25.461
[2019-12-03] MEDS: ACETAMINOPHEN 500 MG TAB PO SCH ×2 (14:05→21:11)
[2019-12-03] MEDS: SODIUM CHLORIDE 0.9% 1000ML 1,000 ML IV SCH ×3 (14:06→23:58)
[2019-12-03] MEDS: OXYCODONE HCL IR 5 MG TAB (IMMEDIATE RELEASE) PO PRN ×2 (14:20→18:22)
[2019-12-03] MEDS: HYDROmorphone INJ 0.5 MG/0.5 ML SYR IV PRN ×2 (16:30→21:08)
[2019-12-03] MEDS: FERROUS GLUCONATE 324 MG TAB PO SCH (18:29)
[2019-12-03] MEDS: FEXOFENADINE 60MG/PSEUDOEPHEDRINE 120MG TAB PO SCH (21:10)
[2019-12-03] MEDS: TAMSULOSIN HCL 0.4 MG CAP PO SCH (21:11)
[2019-12-03] MEDS: DULOXETINE HCL 60 MG CAP PO SCH (21:11)
[2019-12-03] MEDS: SENNA 8.6 MG TAB PO SCH ×2 (21:11→21:22)
[2019-12-03] MEDS: ASPIRIN 81 MG ECTAB PO SCH (21:11)
[2019-12-04] MEDS: ACETAMINOPHEN 500 MG TAB PO SCH ×3 (05:57→20:25)
[2019-12-04] MEDS: LEVOTHYROXINE SODIUM 88 MCG TABLET PO SCH (05:57)
[2019-12-04] MEDS: VANCOMYCIN HCL 1,500 MG in SODIUM CHLORIDE 0.9% 500 ML IV SCH ×2 (05:58→19:24)
[2019-12-04 06:17] LABS: Hematocrit (blood only) 34.6 % (42-52); Hemoglobin 11.7 g/dL (14.0-18.0); Mean Corpuscular Hemoglobin 31.9 pg (25-34); Mean Corpuscular Hgb Conc 33.8 g/dL (32-36); Mean Corpuscular Volume 94.3 fL (80-100); Mean Platelet Volume 10.5 fL (7.4-10.4); Platelet Count 162 K/uL (130-400); RDW Coefficient of Variation 14.7 % (11.5-14.5); RDW Standard Deviation 50.5 fL (36.4-46.3); Red Blood Count 3.67 M/uL (4.7-6.1); White Blood Count 5.35 K/uL (4.8-10.8)
[2019-12-04 06:47] LABS: BUN Creatinine Ratio 19.4 (10-20); Calcium 7.7 mg/dl (8.5-10.1); Creatinine Clr Calc Pharmacy 71.4 ml/min; Est GFR (African American) 75.7; Est GFR (Non-African American) 65.3
[2019-12-04] MEDS: FERROUS GLUCONATE 324 MG TAB PO SCH ×2 (09:07→17:14)
[2019-12-04] MEDS: MULTIVITAMIN TAB PO SCH (09:08)
[2019-12-04] MEDS: DOCUSATE SODIUM 100 MG CAP PO SCH ×2 (09:08→20:24)
[2019-12-04] MEDS: ASPIRIN 81 MG ECTAB PO SCH ×2 (09:08→20:25)
[2019-12-04] MEDS: FEXOFENADINE 60MG/PSEUDOEPHEDRINE 120MG TAB PO SCH ×2 (09:08→20:24)
[2019-12-04] MEDS: lisinopriL 20 MG TAB PO SCH (09:09)
[2019-12-04] MEDS: PANTOprazole 40 MG TAB PO SCH (09:09)
[2019-12-04] MEDS: modafiniL 100 MG TAB PO SCH (09:10)
[2019-12-04] MEDS ORDERED: Nursing to Pharmacy Communication ONE (09:50)
--- NOTE | 2019-12-04 10:18 | Orthopedic Progress Note ---
Date of Service December 04, 2019 Assessment & Plan (1) Status post bilateral knee replacements: WBAT Continue to monitor cultures, currently pending Vanco currently, continue to appreciate ID input SCDs, ASA, Subjective POD # 1 s/p b/l knee poly exchange I &D . He notes no complaints today. No CP, SOB, dizziness Physical Exam Physical Exam: Toes mobile, NVI. Calves soft, non tender. Dressing in place. Hemovac draining Results & Data ([facility]) Vital Signs (Past 12 Hours) Vital Signs Temp Pulse Resp BP Pulse Ox 12/04/19 07:16 36.9 C 70 18 130/68 94 12/04/19 03:18 36.7 C 67 18 120/67 95 12/03/19 23:12 36.6 C 69 18 130/70 96
[2019-12-04] MEDS: OXYCODONE HCL IR 5 MG TAB (IMMEDIATE RELEASE) PO PRN ×3 (10:30→20:37)
[2019-12-04] MEDS ORDERED: VANCOMYCIN TROUGH ONE (17:30)
--- NOTE | 2019-12-04 19:01 | Pharmacy Report ---
Pharmacy Abx Dose Short Note - Date of Service December 04, 2019 - Assessment & Plan Assessment Laboratory Tests 12/04/19 17:24 Vancomycin Trough 12.6 73 year old M receiving Vancomycin 1500mg Q12H for treatment of Bone and joint infection Day # 3 of antimicrobial therapy. Plan Vancomycin * Trough level of 12.6 mcg/mL is subtherapeutic for clinical indication. * Change to 1750 mg IV every 12 hours * Goal trough level : 15 to 20 mcg/mL Pharmacy will continue to follow and will adjust dose/frequency as necessary. Thank you.
[2019-12-04] MEDS: VANCOMYCIN HCL 1,750 MG in SODIUM CHLORIDE 0.9% 500 ML IV SCH (20:17)
[2019-12-04] MEDS: SENNA 8.6 MG TAB PO SCH (20:22)
[2019-12-04] MEDS: TAMSULOSIN HCL 0.4 MG CAP PO SCH (20:24)
[2019-12-04] MEDS: DULOXETINE HCL 60 MG CAP PO SCH (20:25)
[2019-12-05] MEDS: ACETAMINOPHEN 500 MG TAB PO SCH ×3 (05:22→21:55)
[2019-12-05] MEDS: VANCOMYCIN HCL 1,750 MG in SODIUM CHLORIDE 0.9% 500 ML IV SCH ×2 (05:58→20:06)
[2019-12-05] MEDS: LEVOTHYROXINE SODIUM 88 MCG TABLET PO SCH (05:58)
[2019-12-05 07:22] LABS: Creatinine Clr Calc Pharmacy 79.2 ml/min; Est GFR (African American) 85.7
[2019-12-05] MEDS: MULTIVITAMIN TAB PO SCH (07:34)
[2019-12-05] MEDS: FERROUS GLUCONATE 324 MG TAB PO SCH ×2 (07:34→17:39)
[2019-12-05] MEDS: DOCUSATE SODIUM 100 MG CAP PO SCH ×2 (07:35→20:12)
[2019-12-05] MEDS: FEXOFENADINE 60MG/PSEUDOEPHEDRINE 120MG TAB PO SCH ×2 (07:35→20:12)
[2019-12-05] MEDS: ASPIRIN 81 MG ECTAB PO SCH ×2 (07:36→20:13)
[2019-12-05] MEDS: PANTOprazole 40 MG TAB PO SCH (07:36)
[2019-12-05] MEDS: modafiniL 100 MG TAB PO SCH (07:37)
[2019-12-05] MEDS: OXYCODONE HCL IR 5 MG TAB (IMMEDIATE RELEASE) PO PRN (07:41)
[2019-12-05] MEDS: lisinopriL 20 MG TAB PO SCH (08:18)
--- NOTE | 2019-12-05 11:48 | Orthopedic Progress Note ---
Date of Service December 05, 2019 Assessment & Plan (1) Status post bilateral knee replacements: WBAT Continue to monitor cultures, currently pending no growth at this time Vanco currently, continue to appreciate ID input SCDs, ASA, Subjective POD # 2 s/p b/l knee poly exchange I &D . He notes no complaints today. No CP, SOB, dizziness Physical Exam Physical Exam: Toes mobile, NVI. Calves soft, non tender. Dressing in place. silverlon in place Results & Data ([facility]) Vital Signs (Past 12 Hours) Vital Signs Temp Pulse Resp BP Pulse Ox 12/05/19 06:32 36.6 C 79 18 145/73 H 95
[2019-12-05] MEDS: DULOXETINE HCL 60 MG CAP PO SCH (20:13)
[2019-12-05] MEDS: TAMSULOSIN HCL 0.4 MG CAP PO SCH (20:14)
[2019-12-05] MEDS: SENNA 8.6 MG TAB PO SCH (20:14)
[2019-12-06] MEDS: LEVOTHYROXINE SODIUM 88 MCG TABLET PO SCH (06:06)
[2019-12-06] MEDS: ACETAMINOPHEN 500 MG TAB PO SCH ×3 (06:06→21:12)
[2019-12-06] MEDS: VANCOMYCIN HCL 1,750 MG in SODIUM CHLORIDE 0.9% 500 ML IV SCH ×2 (06:26→18:44)
[2019-12-06] MEDS ORDERED: VANCOMYCIN TROUGH ONE (06:30)
[2019-12-06 06:59] LABS: Creatinine Clr Calc Pharmacy 83.3 ml/min; Est GFR (African American) 91.2; Est GFR (Non-African American) 78.7
--- NOTE | 2019-12-06 08:15 | Pharmacy Report ---
Pharmacy Abx Dose Short Note - Date of Service December 06, 2019 - Assessment & Plan Assessment 73 year old M receiving vancomycin for treatment of bone/joint infection Day # 5 of antimicrobial therapy. Plan Vancomycin * Trough level came back therapeutic at ~17 mcg/ml (goal for bone/join ~15-20 mcg/ml) * Will continue same vancomycin regimen of 1750 mg iv q 12 hrs * Renal function remains stable / Gram stain of knee no growth * ID following patient, will continue to follow to determine plan with antibiotics Pharmacy will continue to follow and will adjust dose/frequency as necessary. Thank you.
--- NOTE | 2019-12-06 08:33 | Orthopedic Progress Note ---
Date of Service December 06, 2019 Assessment & Plan (1) Status post bilateral knee replacements: POD 3 s/p Bilateral TKA I/D with poly change PT/OT. WBAT Continue to monitor cultures, currently pending no growth at this time Vanco currently; as per ID recommendations. SCDs, ASA, DC planning - await ID recs; possible PICC line and intermediate card tender antibx. Likely HH services upon dc Subjective POD 3 Pt sitting up in chair at bedside. Feeling well today. Pain controlled while at rest. Denies SOB,CP,LH. Cx's NGTD at this time. Physical Exam Physical Exam: Bilateral Silverlon dressings C/D/I. No overt drainage in the dressing windows. Calves soft, NT. NV intact. Results & Data ([facility]) Vital Signs (Past 12 Hours) Vital Signs Temp Pulse Resp BP BP Pulse Ox 12/06/19 07:23 36.3 C L 62 16 160/86 H 96 12/05/19 22:51 37.0 C 70 16 159/82 H 95
[2019-12-06] MEDS: FEXOFENADINE 60MG/PSEUDOEPHEDRINE 120MG TAB PO SCH ×2 (09:05→21:12)
[2019-12-06] MEDS: lisinopriL 20 MG TAB PO SCH (09:05)
[2019-12-06] MEDS: MULTIVITAMIN TAB PO SCH (09:05)
[2019-12-06] MEDS: PANTOprazole 40 MG TAB PO SCH (09:06)
[2019-12-06] MEDS: ASPIRIN 81 MG ECTAB PO SCH ×2 (09:06→21:13)
[2019-12-06] MEDS: DOCUSATE SODIUM 100 MG CAP PO SCH ×2 (09:06→21:11)
[2019-12-06] MEDS: FERROUS GLUCONATE 324 MG TAB PO SCH ×2 (09:07→17:19)
[2019-12-06] MEDS: modafiniL 100 MG TAB PO SCH (09:08)
--- NOTE | 2019-12-06 11:05 | Infectious Disease Progress Nt ---
Date of Service December 06, 2019 Assessment & Plan (1) Effusion of right knee joint: continue abx, cultures negative. would suggest 4 weeks IV vanco, weekly cbc, cmp, esr, vanco trough 15-20. Subjective aspirate cultures on 12/02 negative and final, OR cultures negative to date, on vanco, ,per ortho pt is scheduled for picc line and alf abx for suspected infection. afebrile. creat 0.9, vanco trough adequate. tolerating abx. for pot ential d/c. Results & Data Vital Signs (Past 12 Hours) Vital Signs Temp Pulse Resp BP Pulse Ox 12/06/19 07:23 36.3 C L 62 16 160/86 H 96 Laboratory Results Microbiology 12/03/19 11:25 Knee,Right Gram Stain - Final 12/03/19 11:25 Knee,Right Aerobic and Anaerobic Culture - Preliminary No growth to date. 12/03/19 10:03 Knee,Left Gram Stain - Final 12/03/19 10:03 Knee,Left Aerobic and Anaerobic Culture - Preliminary No growth to date. PG Care Time/CCT Total # of Minutes Spent Total Time Spent with Patient: Total time spent is greater than 50% in coordination of care (as documented) at patient's floor/unit and/or counseling patient: Coding Level of Care Code 34353 Subseq Hosp Care Lvl 1 Diagnoses Effusion of right knee joint M25.461
[2019-12-06] MEDS: SENNA 8.6 MG TAB PO SCH (21:12)
[2019-12-06] MEDS: TAMSULOSIN HCL 0.4 MG CAP PO SCH (21:12)
[2019-12-06] MEDS: DULOXETINE HCL 60 MG CAP PO SCH (21:13)
[2019-12-07] MEDS: ACETAMINOPHEN 500 MG TAB PO SCH (05:30)
[2019-12-07] MEDS: LEVOTHYROXINE SODIUM 88 MCG TABLET PO SCH (05:30)
[2019-12-07] MEDS: VANCOMYCIN HCL 1,750 MG in SODIUM CHLORIDE 0.9% 500 ML IV SCH (06:23)
[2019-12-07 06:26] LABS: Creatinine Clr Calc Pharmacy 81.6 ml/min; Est GFR (African American) 88.9; Est GFR (Non-African American) 76.7
[2019-12-07] MEDS: MULTIVITAMIN TAB PO SCH (08:37)
[2019-12-07] MEDS: modafiniL 100 MG TAB PO SCH (08:37)
[2019-12-07] MEDS: FEXOFENADINE 60MG/PSEUDOEPHEDRINE 120MG TAB PO SCH (08:37)
[2019-12-07] MEDS: DOCUSATE SODIUM 100 MG CAP PO SCH (08:38)
[2019-12-07] MEDS: PANTOprazole 40 MG TAB PO SCH (08:38)
[2019-12-07] MEDS: lisinopriL 20 MG TAB PO SCH (08:39)
[2019-12-07] MEDS: FERROUS GLUCONATE 324 MG TAB PO SCH (08:39)
[2019-12-07] MEDS: ASPIRIN 81 MG ECTAB PO SCH (09:19)
--- NOTE | 2019-12-07 09:24 | Orthopedic Progress Note ---
Date of Service December 07, 2019 Assessment & Plan (1) Status post bilateral knee replacements: POD 3 s/p Bilateral TKA I/D with poly change PT/OT. WBAT Continue to monitor cultures, currently pending no growth at this time Antibiotics being switched to daptomycin. Patient has no home health IV coverage and will need to go to a medical treatment unit daily for his antibiotics. For this we wanted to switch him to once daily dosing. I discussed the case with Dr. Holguin and decided on daptomycin per her dosing recommendations. Patient aware and agreeable. SCDs, ASA, DC planning -planning for outpatient IV antibiotics at [facility] being arranged by case management. Plan to receive first dose of daptomycin at noon today and plan for discharge thereafter. Subjective Postop day 5 status post I&D bilateral knees. Patient currently sitting in his chair at the bedside reading paper. No complaints this morning. Comfortable. Pain is controlled. Hoping to go home today. Physical Exam Physical Exam: Silverlon dressings are clean, dry, and intact. Calves are soft nontender. Neurovascular is intact. Toes are mobile. Results & Data ([facility]) Vital Signs (Past 12 Hours) Vital Signs Temp Pulse Resp BP Pulse Ox 12/07/19 07:35 37.1 C 71 19 136/65 93 12/06/19 23:04 37.1 C 70 16 155/74 H 94
[2019-12-07] MEDS ORDERED: DAPTOmycin 500 MG VIAL IV SCH (12:00)
[2019-12-07] MEDS ORDERED: DAPTOmycin 475 MG in SYRINGE 0 ML IV SCH (12:00)
--- NOTE | 2019-12-13 11:03 | Discharge Summary ---
Date of Service December 13, 2019 Admission HPI Per Admitting Provider Mr. Walker is a pleasant male, known patient to Dr. Beasley who presented to the office today with bilateral knee pain and swelling for 3 days. By history, he had a bilateral knee replacements in 2005 and has been doing pretty well since then. On Friday, he was noted to have fever, chills and nausea with some mild knee pain at that point. He called the office this morning with an increase in bilateral knee pain to the point that he is unable to bear much weight on either knee. He denies any known injuries or trauma to either knee. He complains of pain, swelling, redness and warmth to bilateral knees. Admission Exam Per Admitting Provider GENERAL: Pleasant male in no acute distress, alert and oriented x3. HEENT: Normocephalic, atraumatic. CARDIAC: Regular rate and rhythm. No murmurs or gallops appreciated. Resting pulse 80 beats per minute. LUNGS: Clear to auscultation without rales or wheeze bilaterally. ABDOMEN: Soft, nontender. Bowel sounds present. EXTREMITIES: Bilateral lower extremities neurovascularly intact. Calves were soft and nontender. DP pulse, palpable bilateral legs. He does have moderate effusion to both knees and are warm to touch. Range of motion of his right knee is 0/3/90 and his left knee is 0/5/90. He has diffuse tenderness to palpation to both knees. Both knees are ligamentously stable with valgus varus stress. He has well-healed surgical incisions noted. Principal Diagnosis Infection Bilateral TKA Discharge Exam Silverlon dressings are clean, dry, and intact. Calves are soft nontender. Neurovascular is intact. Toes are mobile. Discharge Data Allergies Allergy/AdvReac Type Severity Reaction Status Date / Time hydrocodone Allergy Unknown CHEST Verified 03/05/17 09:26 TIGHTNESS AND HEAVINESS Consultations 12/02/19 15:20 Consult Case Management - Discharge Planning Routine 12/02/19 15:25 Consult Infectious Diseases Routine 12/03/19 13:40 Consult Case Management - Discharge Planning Routine Procedures Performed Operation Date: 12/03/19 09:10 Actual Procedures p Bilateral Total Knee: Incision and Drainage and Debridement with Poly Exchanges(Bilateral) - Simone Beasley DO Hospital Course (1) Status post bilateral knee replacements: Patient was admitted on the above-noted date and planned for bilateral knee washouts. Dr. Holguin was consulted from infectious disease for ID consult and was started on IV antibiotics. He was taken to the operating room on 12/03/2019 and the above-noted procedures performed which he tolerated well. Cultures were drawn during the operative period as well as the preoperative period. He was continued on IV antibiotics (Vancomycin) with plans to follow cultures. He was started on a PT and OT protocol and continued on DVT prophylaxis and pain management. Over the next several days he continued to progress with his physical therapy and remained stable. Cultures remained negative. ID team recommended 4 weeks of home IV antibiotics. Plans were for him to go home on IV antibiotics which a PICC line was then placed. Patient's antibiotic coverage was minimal for home IVs and plans were to change him to daptomycin once daily and have him continue to receive his antibiotics through the MT[facility] at [facility]. He was thusly discharged to home on 12/07/19. Total Time Total Time Spent Total Time Spent (In Minutes): 5 Discharge Plan Discharge Items Patient Disposition: Home - Home Health Services Reason For Visit: B/L TKA INFECTION Discharge Diagnosis: Bilateral total knee arthroplasty infection Activity: Per Instructions section Weightbearing: Full weightbearing Weightbearing Comment: As tolerated with walker Non-emergency contact: Surgeon Call non-emergency contact if: your pain is not controlled, your temperature is above 101.5, your wound has increased redness and your wound has increased drainage Follow-up/Referrals: PCP,NO [Primary Care Provider] - Diet: Regular Addtl Attending Provider Instructions: You will be receiving Outpatient IV antibiotics. You will be needing weekly blood draws will be sent to Dr. Holguin and Dr. Beasley. Dr. Holguin will adjust your antibiotic or change it as needed. ACTIVITY RECOMMENDATIONS: SELF CARE INSTRUCTIONS AFTER TOTAL KNEE REPLACEMENT A. You may need to continue a physical therapy program after discharge from the hospital. There are several options available to you. Your doctor will assist you in selecting the best one for you. 1. An out-patient facility 2 to 3 times a week for therapy or home therapy. 2. Continue working on all exercises taught to you in the hospital. Your goals should be to increase bending of your knee to 90 degrees and beyond and to fully straighten your knee. B. You may progress at your own pace from walking with a walker or crutches to a cane; then to no assistive devices. C. Make walking a part of your daily routine. Be up as much as comfortable with rest periods throughout the day. Rest with leg elevation is very important. Use the ice wrap frequently for the first 3-4 weeks. D. There are no restrictions on activities. You may ride in a car, shop, participate in mercury cracking tester and all social activities. E. Wear the long elastic stockings (LIDA hose) 20 hours a day for 2 weeks after surgery. They can be removed several times a day for laundering and for a bath. F. You may shower, no tub baths until cleared by your doctor. SPECIAL CARE INSTRUCTIONS: VERY IMPORTANT TO READ AND REVIEW A. There are a few signs you need to watch for after you are home. Call [facility] if you notice any of the followin. Increased severe knee pain. Some pain is expected especially when you exercise. 2. Increased swelling in your leg or knee; pain or swelling of the calf muscle in either lower leg. 3. Any fluid drainage from the incision. 4. Shortness of breath or chest pain. B. Please call [facility] at if you have any concerns or questions about your operation or recovery. The doctor or his nurse will return your call promptly. C. You must take antibiotics before dental work, bladder, bowel or other surgery. Your doctor will provide you with a permanent care to carry describing this precaution. IMPORTANT: * REMEMBER TO TAKE ASPIRIN, 81 MG, TWICE DAILY FOR 4 WEEKS UNLESS OTHERWISE DIRECTED. THIS IS YOUR BLOOD THINNER.. * CALL IF INCREASED PAIN, REDNESS, DRAINAGE OR FEVER GREATER THAT 101. * WEAR LIDA HOSE 20 HOURS PER DAY FOR 2 WEEKS. * Silverlon- This is a large adhesive bandage that contains silver ions. This helps your incision heal by fighting off bacteria and protecting it from the outside environment. You are permitted to shower with this dressing. This will remain on your incision for 7 days and then should be removed. Some visible blood or drainage through the dressing window is normal. If there is significant drainage or leaking noted before the 7 days notify your doctor's office immediately. Once removed, keep incision clean and dry. If there is any drainage or redness noted, please call your surgeon. . FOLLOW UP VISIT: If appointment is not already scheduled: Please call [facility] to make a follow-up appointment for 2 weeks after your surgery at . Follow up with Dr Holguin in 10-14 days. Call for an appointment. [phone] Stand-Alone Forms: [facility], Opioid Pain Management, Smoking Cessation Medications and DC Order Prescriptions: New aspirin [Ecotrin Low Strength] 81 mg Tablet,Delayed Release (Dr/Ec) 81 mg PO BID 30 Days Qty: 60 RF: 0 acetaminophen 500 mg Tablet 1,000 mg PO Q8 14 Days Qty: 84 RF: 0 oxycodone 5 mg Tablet 5 mg PO Q4H MDD 6 tabs PRN (Reason: pain) Qty: 30 RF: 0 sennosides [Senokot] 8.6 mg Tablet 17.2 mg PO HS Qty: 30 RF: 0 daptomycin 500 mg recon soln 380 mg IV DAILY 28 Days Qty: 1 RF: 0 Continued Duloxetine Hcl (Cymbalta *) 60 MG capsule 60 mg PO HS Qty: 0 RF: 0 Dutasteride (Avodart *) 0.5 MG capsule 0.5 mg PO QAM Qty: 0 RF: 0 Multivitamin tablet 1 tab PO QAM Qty: 0 RF: 0 Tamsulosin Hcl (Flomax *) 0.4 MG capsule 0.4 mg PO HS Qty: 0 RF: 0 Fexofenadine/Pseudoephedrine (Tati-D 24HR 180/240MG *) [id number] 1 tab PO QAM Qty: 0 RF: 0 ASCORBIC ACID 500 MG tablet 500 mg PO QAM Qty: 0 RF: 0 Modafinil (Provigil) 200 MG tablet 200 mg PO DAILY Qty: 0 RF: 0 Lansoprazole (Prevacid) 30 MG CONTR REL CAP 30 mg PO QAM Qty: 0 RF: 0 LEVOTHYROXINE SODIUM 88 MCG tablet 1 tab PO QAM 90 Days Qty: 90 RF: 3 Lisinopril (Zestril) 20 MG tablet 20 mg PO QAM Qty: 0 RF: 0 Discontinued Aspirin Enteric Coated (Ecotrin Or Generic *) 81 MG ENTERIC COATED TAB 81 mg PO QAM Qty: 0 RF: 0 Fish Oil (Walton-3) 1 EA capsule 1,200 mg PO QAM Qty: 0 RF: 0 Oxycodone HCl 5 MG tablet 5 - 10 mg PO Q4H PRN (Reason: Moderate - severe pain) 30 Days Qty: 90 RF: 0 Discharge Orders: Discharge Order (Routine); Ordered 12/07/19 Ordered By: Pancho Moss Admission Data Admit Date/Time: 12/02/19 14:31 Attending Provider: Simone Beasley Admit Provider: Simone Beasley Primary Care Provider: PCP,NO Other Providers: Sosa Holguin Other Interventions: Discharge Summary Assessment (RN) Last Done: 12/07/19 10:45 DC Date/Time DO NOT enter until pt leaves facility: 12/07/19 12:31
== END 2019-12-07 12:31 | disposition home health service (06) | DRG 487 ==
LOC: 3N 14:31
DX: T84.54XA Infection and inflammatory reaction due to internal left knee prosthesis, initial encounter; K21.9 Gastro-esophageal reflux disease without esophagitis; Z22.322 Carrier or suspected carrier of Methicillin resistant Staphylococcus aureus; E03.9 Hypothyroidism, unspecified; Y99.8 Other external cause status; T84.53XA Infection and inflammatory reaction due to internal right knee prosthesis, initial encounter; E78.00 Pure hypercholesterolemia, unspecified; Z88.5 Allergy status to narcotic agent; Z79.82 Long term (current) use of aspirin; Y83.1 Surgical operation with implant of artificial internal device as the cause of abnormal reaction of the patient, or of later complication, without mention of misadventure at the time of the procedure; I10 Essential (primary) hypertension; N40.0 Benign prostatic hyperplasia without lower urinary tract symptoms; Z96.653 Presence of artificial knee joint, bilateral; Z79.899 Other long term (current) drug therapy